=== PATIENT | male | born 1985 | race Asian ===

== ENCOUNTER 2020-07-24 15:56 | Observation (INO) ==
[2020-07-24] MEDS ORDERED: HYDROmorphone 2 MG/1 ML VIAL IV STA ×2 (16:56→16:59)
[2020-07-24] MEDS ORDERED: SODIUM CHLORIDE 0.9% 1,000 ML IV STA (16:56)
[2020-07-24] MEDS ORDERED: ONDANSETRON 4 MG/2 ML VIAL IV ONE (16:57)
[2020-07-24] MEDS ORDERED: ONDANSETRON 4 MG/2 ML VIAL IV PRN (16:59)
[2020-07-24] MEDS ORDERED: ACETAMINOPHEN 325 MG TABLET PO PRN (16:59)
[2020-07-24] MEDS ORDERED: ceFAZolin 1,000 MG VIAL ONE (17:16)
[2020-07-24] MEDS: ceFAZolin 2,000 MG/50 ML DUPLEX IV SCH (17:45)
[2020-07-24 18:39] LABS: Basophils # 0.1 10*3/uL (0.0-0.2); Basophils % 0.5 % (0.0-0.8); Eosinophils # 0.6 10*3/uL (0.0-0.87); Hematocrit 36.8 VOL% (42.0-52.0); Hemoglobin 12.3 GM/DL (14.0-18.0); Immature Granulocytes % 0.5 %; Immature Granulocytes Absolute 0.06 #; Mean Corpuscular HGB Conc 33.4 GM/DL (32-36); Mean Corpuscular Volume 84.6 FL (87-102); Mean Platelet Volume 9.7 FL (9.6-12.0); Monocytes % 8.4 % (1.7-12.7); Neutrophils % 62.6 % (38.7-73.9); Platelet Count 370 T/CUMM (130-400); Red Blood Count 4.35 MC/CUMM (3.8-5.5); Red Cell Distribution Width 12.9 % (9.3-17.3); White Blood Count 12.9 T/CUMM (4-12)
[2020-07-24 18:56] LABS: Calcium 8.6 MG/DL (8.5-10.1); Osmolality,Calculated 275.7 MOS/KG (273-304); Potassium 3.6 MMOL/L (3.5-5.1)
[2020-07-25] MEDS: ceFAZolin 2,000 MG/50 ML DUPLEX IV SCH ×3 (02:12→17:59)
[2020-07-25] MEDS ORDERED: MIDAZOLAM 2 MG/2 ML VIAL ONE (09:09)
[2020-07-25] MEDS ORDERED: fentaNYL 100 MCG/2 ML VIAL ONE ×2 (09:09→09:40)
[2020-07-25] MEDS ORDERED: ONDANSETRON 4 MG/2 ML VIAL ONE (09:10)
[2020-07-25] MEDS ORDERED: SEVOFLURANE 1 UNIT/15 MINUTE INH ONE (09:10)
[2020-07-25] MEDS ORDERED: LIDOCAINE 2% 5 ML VIAL ONE (09:10)
[2020-07-25] MEDS ORDERED: propofoL 200 MG/20 ML VIAL IV ONE ×2 (09:10→09:47)
[2020-07-25] MEDS ORDERED: BUPIVACAINE MPF 0.25% 30 ML VIAL ONE (09:11)
[2020-07-25] MEDS ORDERED: LIDOCAINE 1%/EPI INJ 20 ML VIAL ONE (09:11)
[2020-07-25] MEDS ORDERED: LACTATED RINGERS 1,000 ML IV SCH (09:30)
[2020-07-26] MEDS: ceFAZolin 2,000 MG/50 ML DUPLEX IV SCH ×2 (01:49→10:40)
[2020-07-26] MEDS ORDERED: SODIUM HYPOCHLORITE 0.25% IRRIG 473 ML BOTTLE TOP SCH (11:30)
[2020-07-26 12:27] VITALS: BP 121/61
== END 2020-07-26 14:10 | disposition home or self-care (01) ==
LOC: N.ED 15:56 → N.EDINP 15:56 → N.3E 18:49
PROVIDERS: ADMIT Surgery; ATTEND Surgery